=== PATIENT | male | born 1960 | race Caucasian/White ===

== ENCOUNTER 2021-03-04 10:09 | Emergency (ER) | payer BC ==
[2021-03-04] MEDS ORDERED: Bupivacaine 0.5% 10 ML SDV INJECT ONE (10:33)
--- NOTE | 2021-03-04 10:45 | EDM.PDOC ---
ED HPI GENERAL MEDICAL PROBLEM - General Chief Complaint: Upper Extremity Injury/Pain Stated Complaint: HAND CRUSHED Time Seen by Provider: 03/04/21 10:28 Source of Information: Reports: Patient History Limitations: Reports: No Limitations - History of Present Illness INITIAL COMMENTS - FREE TEXT/NARRATIVE: 60-year-old male presents to the ED for evaluation of an acute injury to his right distal fifth finger when a chain broke and came back slamming his distal right fifth finger against a steel plate. This resulted in a significant deformity of the distal phalanx. He denies any other injuries. Tetanus toxoid was updated 2 years ago. Patient reports he has not had anything to eat or drink yet today. Patient is right-hand dominant. Onset: Today, Sudden Onset Date: 03/04/21 Onset Time: 09:30 Duration: Minutes:, Constant Location: Reports: Upper Extremity, Right (Injury to the distal phalanx of the right fifth finger) Quality: Reports: Ache, Throbbing Severity: Moderate (8 out of 10) Improves with: Reports: None Worsens with: Reports: Movement Context: Reports: Trauma (Like trauma when a broken chain slammed against the distal aspect of his fifth finger and a steel plate). Denies: Activity, Exercise, Lifting, Sick Contact Associated Symptoms: Reports: No Other Symptoms Treatments CURTAIN STITCHER: Reports: Other (see below) (None.) Right Finger-Little Pain Score (Numeric/FACES): 8 - Related Data Allergies Allergy/AdvReac Type Severity Reaction Status Date / Time No Known Allergies Allergy Verified 03/04/21 11:31 Home Meds: Home Meds . [No Known Home Meds] 03/04/21 [History] Past Medical History Musculoskeletal History: Reports: Back Pain, Chronic (Occasional low back pain), Osteoarthritis (Some in his neck and left knee), Other (See Below) (Right total knee replacement x2) - Past Surgical History Musculoskeletal Surgical History: Reports: Knee Replacement (X2 on the right side. 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[employer]) Review of Systems - Review of Systems Review Of Systems: See Below Constitutional: Reports: No Symptoms Eyes: Reports: Glasses Ears: Reports: Other Nose: Reports: No Symptoms (Mildly hearing impaired) Mouth/Throat: Reports: No Symptoms Respiratory: Reports: No Symptoms Cardiovascular: Reports: No Symptoms GI/Abdominal: Reports: No Symptoms Genitourinary: Reports: Other (Frequency nocturia x1) Musculoskeletal: Reports: Neck Pain, Shoulder Pain, Back Pain, Joint Pain (Occasional knee pain) Skin: Reports: No Symptoms Neurological: Reports: No Symptoms Psychiatric: Reports: No Symptoms ED EXAM, GENERAL - Physical Exam Exam: See Below Exam Limited By: No Limitations General Appearance: Alert, WD/WN, Mild Distress, Other (Temperature is 37.1. Heart rate 94 and sinus respiratory is 18 with O2 sats of 96% room air. BP is 145/97) Eye Exam: Bilateral Eye: Normal Inspection, PERRL Throat/Mouth: Normal Lips, Other (Oropharynx is diffusely erythematous from cigarette smoking). No: Normal Oropharynx Head: Atraumatic, Normocephalic Neck: Normal Inspection, Supple, Non-Tender, Full Range of Motion. No: Lymphadenopathy (L), Lymphadenopathy (R) Respiratory/Chest: No Respiratory Distress, Lungs Clear, Normal Breath Sounds, No Accessory Muscle Use. No: Rhonchi, Wheezing Cardiovascular: Normal Peripheral Pulses, Regular Rate, Rhythm, No Edema, No Gallop, No Murmur, No Rub Peripheral Pulses: 2+: Carotid (L), Carotid (R), Posterior Tibial (L), Posterior Tibial (R), Dorsalis Pedis (L), Dorsalis Pedis (R) GI/Abdominal: Normal Bowel Sounds, Soft, Non-Tender, No Organomegaly, No Disten tion, Other (No surgical scars). No: Guarding, Rigid, Rebound Extremities: Other (Examination of the distal right fifth finger reveals near amputation of the distal phalanx inferior to the fingernail with the distal portion of the finger avulsed dorsally. He is torn away the skin from the fat pad volarly. Decreased sensation both ulnar and radial aspect of the finger wi th bluis) Neurological: Alert, Oriented, CN II-XII Intact, Normal Cognition Psychiatric: Normal Mood, Anxious Skin Exam: Warm, Dry, Normal Color, No Rash Course - Vital Signs Last Recorded V/S: Last Vital Signs Temp 37.1 C 03/04/21 10:20 Pulse 94 03/04/21 10:20 Resp 18 03/04/21 10:20 BP 145/97 H 03/04/21 10:20 Pulse Ox 96 03/04/21 10:20 - Orders/Labs/Meds Orders: Active Orders 24 hr Category Date Time Status Peripheral IV Care [RC] . DIRECTED Care 03/04/21 11:55 Active Sodium Chloride 0.9% [Saline Flush] Med 03/04/21 11:55 Active 10 ml FLUSH ASDIRECTED PRN Peripheral IV Insertion Adult [OM.PC] Stat Oth 03/04/21 11:55 Ordered Medication Orders Sodium Chloride (Sodium Chloride 0.9% 10 Ml Syringe) 10 ml FLUSH ASDIRECTED PRN PRN Reason: Keep Vein Open Last Admin: 03/04/21 12:42 Dose: 10 ml Documented by: HERMMIC Labs: Laboratory Tests 03/04/21 03/04/21 03/04/21 Range/Units 12:10 12:20 12:20 WBC 8.93 (4.23-9.07) K/mm3 RBC 5.05 (4.63-6.08) M/mm3 Hgb 16.2 (13.7-17.5) gm/dl Hct 49.0 (40.1-51.0) % MCV 97.0 H (79.0-92.2) fl MCH 32.1 (25.7-32.2) pg MCHC 33.1 (32.2-35.5) g/dl RDW Std Deviation 49.8 H (35.1-43.9) fL Plt Count 240 (163-337) K/mm3 MPV 9.6 (9.4-12.3) fl Neut % (Auto) 69.7 H (34.0-67.9) % Lymph % (Auto) 23.9 (21.8-53.1) % Dolores % (Auto) 5.9 (5.3-12.2) % Eos % (Auto) 0.2 L (0.8-7.0) Baso % (Auto) 0.1 (0.1-1.2) % Neut # (Auto) 6.22 H (1.78-5.38) K/mm3 Lymph # (Auto) 2.13 (1.32-3.57) K/mm3 Dolores # (Auto) 0.53 (0.30-0.82) K/mm3 Eos # (Auto) 0.02 L (0.04-0.54) K/mm3 Baso # (Auto) 0.01 (0.01-0.08) K/mm3 Sodium 138 (136-145) mEq/L Potassium 4.1 (3.5-5.1) mEq/L Chloride 102 (98-107) mEq/L Carbon Dioxide 28 (21-32) mEq/L Anion Gap 12.1 (5-15) BUN 15 (7-18) mg/dL Creatinine 1.0 (0.7-1.3) mg/dL Est Cr Clr Drug Dosing 88.38 mL/min Estimated GFR (MDRD) > 60 (>60) mL/min BUN/Creatinine Ratio 15.0 (14-18) Glucose 89 (70-99) mg/dL Calcium 9.2 (8.5-10.1) mg/dL Total Bilirubin 0.8 (0.2-1.0) mg/dL AST 16 (15-37) U/L ALT 28 (16-63) U/L Alkaline Phosphatase 63 (46-116) U/L Total Protein 7.1 (6.4-8.2) g/dl Albumin 4.0 (3.4-5.0) g/dl Globulin 3.1 gm/dL Albumin/Globulin Ratio 1.3 (1-2) SARS-CoV-2 RNA (AREN) Negative (NEGATIVE) Meds: Medications Generic Name Dose Route Start Last Admin Trade Name Freq PRN Reason Stop Dose Admin Sodium Chloride 10 ml 03/04/21 11:55 03/04/21 12:42 Sodium Chloride 0.9% 10 Ml Syringe FLUSH 10 ml ASDIRECTED PRN Administration Keep Vein Open Discontinued Medications Generic Name Dose Route Start Last Admin Trade Name Freq PRN Reason Stop Dose Admin Bupivacaine HCl 10 ml 03/04/21 10:33 03/04/21 10:45 Bupivacaine 0.5% 10 Ml Sdv INJECT 03/04/21 10:34 10 ml ONETIME ONE Administration Cefazolin Sodium/Dextrose 2 gm 50 mls @ 100 mls/hr 03/04/21 11:54 03/04/21 12:31 / Premix IV 03/04/21 12:23 100 mls/hr ONETIME ONE Administration - Radiology Interpretation Free Text/Narrative:: 60-year-old male presents to the ED for evaluation of an acute injury to the distal aspect of his right fifth finger. Farm related accident where a piece of chain broke and came back striking the distal aspect of his fifth finger against a solid steel object. This resulted in avulsion of the skin from the distal volar fifth finger approximately 5 mm superior to the DIP joint. The fingernail and distal portion of the finger has been avulsed dorsally and re marcelle intact dorsally. The question will be what is happened to the underlying distal phalangeal bone. Tetanus toxoid is up-to-date. Plan I will anesthetize the finger with digital block using bupivacaine 0.5%. He will wound will then be soaked in saline and Hibiclens. X-ray of the finger to be done. - Re-Assessments/Exams Free Text/Narrative Re-Assessment/Exam: 03/04/21 11:45: X-rays of the right fifth finger reveal a fracture through the tuft of the distal phalanx with no intraphalangeal joint fracture. There is significant soft tissue damage to the finger however and he has been only mild sensation to the radial aspect of the finger. Fair amount of skin has been avulsed off the pulp space as well. I therefore sent the films by [facility] [place] and I did speak with Dr. Brizuela --on-call orthopedic surgeon and he has accepted care at the emergency room of [facility] in [place]. The patient is to stay n.p.o. and he has not yet ate or drank yet today. COVID-19 screen will be obtained. I had already ordered IV antibiotic Ancef 2 g in the saline lock will stay in place. He will travel by personal vehicle. 03/04/21 12:23 patient will be discharged from our hospital once labs have been obtained and COVID-19 screen has been obtained. He will be traveling back to [facility] and product picker his to take with him in case he needs a general anesthetic to repair his finger. 11/16/21 12:48 White count is 8.93 with differential showing 69.7% neutrophils on the auto differential. Hemoglobin is 16.2 with hematocrit of 49.0 platelet count 240,000 03/04/21 13:15 Sodium was 138 with a potassium of 4.1. Chloride 102 with a bicarb of 28. Anion gap is 12.1. BUN is 15 with a creatinine 1.0 and a GFR greater than 60. Glucose is 89 with a calcium of 9.2. Liver function is normal. Total protein 7.1 with an albumin fraction of 4.0 COVID-19 screen is negative. Departure - Departure Time of Disposition: 13:25 Disposition: DC/Tfer to Acute Hospital 02 Condition: Fair Clinical Impression: Open fracture of finger of right hand Qualifiers: Encounter type: initial encounter Finger: little finger Phalanx: distal Fracture alignment: displaced Qualified Code(s): S62.636B - Displaced fracture of distal phalanx of right little finger, initial encounter for open fracture - Discharge Information Referrals: PCP,None [Primary Care Provider] - Forms: ED Department Discharge Additional Instructions: You are to travel to [facility] in [place] to the emergency department to meet up with orthopedic surgeon to evaluate acute injury to the your distal right fifth finger. It is important that you do not have anything to eat or drink until you know for sure you are not going to need a general anesthetic for surgical repair. Travel to that facility as soon as possible and I agree you need to product picker a tow motor driver in case you do have a general anesthetic they would not let you drive home after having an anesthetic. It is considered an outpatient surgery and you will not have to stay in hospital overnight. Sepsis Event Note (ED) - Focused Exam Vital Signs: Vital Signs Temp Pulse Resp BP Pulse Ox 03/04/21 10:20 37.1 C 94 18 145/97 H 96 - My Orders Last 24 Hours: My Active Orders 03/04/21 11:55 Peripheral IV Care [RC] . DIRECTED Sodium Chloride 0.9% [Saline Flush] 10 ml FLUSH ASDIRECTED PRN Peripheral IV Insertion Adult [OM.PC] Stat - Assessment/Plan Last 24 Hours: My Active Orders 03/04/21 11:55 Peripheral IV Care [RC] . DIRECTED Sodium Chloride 0.9% [Saline Flush] 10 ml FLUSH ASDIRECTED PRN Peripheral IV Insertion Adult [OM.PC] Stat
[2021-03-04] MEDS ORDERED: ceFAZolin 2 GM in Premix Bag 1 BAG IV ONE (11:54)
[2021-03-04] MEDS ORDERED: Sodium Chloride 0.9% 10 ML Syringe FLUSH PRN (11:55)
--- NOTE | 2021-03-04 13:07 | CR ---
Right fifth finger: 4 views of the right fifth finger were obtained. Comparison: No prior finger study is available. Displaced fracture is seen within the distal phalanx of the right fifth finger. Fracture is slightly comminuted. Soft tissue injury is also noted. No proximal bony abnormality is seen. Impression: 1. Slightly displaced and comminuted fracture within the distal phalanx of the right fifth finger with soft tissue injury. Diagnostic code #3
== END 2021-03-04 13:05 ==
LOC: JD.ED 10:09
DX: S62.636B Displaced fracture of distal phalanx of right little finger, initial encounter for open fracture (principal); Z20.822 Contact with and (suspected) exposure to COVID-19; W20.8XXA Other cause of strike by thrown, projected or falling object, initial encounter; W26.8XXA Contact with other sharp object(s), not elsewhere classified, initial encounter
CPT/HCPCS: 36415; 73140; 80053; 85025; 87635; 96365; 99284; J0690; J3490; U0002